=== PATIENT | female | born 1980 ===

== ENCOUNTER 2016-06-19 07:27 | Emergency (ER) | payer MEDICAID, OTHER ==
[~2016-06-19] VITALS: Ht 154.9 cm; Wt 59.1 kg
[2016-06-19 07:29] VITALS: BP 134/93; PULSE 117; RESP 16; O2SAT 100
--- NOTE | 2016-06-19 07:41 | ED.REPORT ---
HPI-Rash / Abscess Date of Service Jun 19, 2016 ED Provider: Steven Sood MD The patient is a 35 year old female who presents to the emergency department complaining of an abscess to her left upper extremity. She first noticed the abscess 4 days ago. The swelling has worsened since onset. 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 Her last use was last night around 2200. She was previously on Suboxone but only used it for 3 days. She is interested in getting help with quitting. She denies fever, chills. nausea or vomiting. Nursing Notes Stated Complaint: ABSCESS ON ARM Chief Complaint: Skin Rash/Abscess Nursing Notes Reviewed: Yes Allergies: Coded Allergies: codeine (Verified Allergy, Mild, rash, 01/19/16) No Active Prescriptions or Reported Meds General Time Seen by MD: 07:36 Chief Complaint Abscess Hx Obtained From: Patient Arrived By: Walk-in Onset Occurred: 4 days ago Context of Onset: Other (IV drug use) Symptom Duration: Since onset Location: : Arm Quality: Painful Severity: Current: Moderate Severity: Maximum: Moderate Associated with: Denies Fever, Denies Nausea, Denies Vomiting Additional Notes: -chills Pertinent Negative: Pt denies other symptoms Recent Healthcare: No recent doctor visit, No recent hospitalization Past Medical History Past Medical History Heart murmur since childhood Previous abscess Past Surgical History Hernia repair Reports: Appendectomy Family History Noncontributory Smoking History Never Smoker Social History Drinks alcohol 3-4 times a week Drug Use: IV drugs, Meth Other Social History: Good social support, Local resident Ambulatory Status Independent Review of Systems Constitutional: Denies: Chills, Fever GI: Denies: Nausea, Vomiting Musculoskeletal: Reports: Extremity pain, Extremity swelling Skin: Reports Rash, Reports Swelling Complete sys rev & neg: except as marked. Physical Exam Initial Vital Signs Vital Signs (First) Date Time Temp Pulse Resp B/P Pulse Ox O2 Delivery O2 Flow Rate FiO2 06/19/16 07:29 36.2 117 16 134/93 100 Room Air Initial VS: Reviewed Head / Eyes: Atraumatic, Normocephalic, PERRL ENT: Mucous membranes moist, Conjunctiva normal, No scleral icterus Neck: Supple, Non-tender, Full range of motion Respiratory: Breath sounds normal, Clear to auscultation, No respiratory distress Abdomen / GI: Soft, Non-tender, No guarding, No rebound, No distention Lymphatic: No lymphadenopathy Extremities: Vascular intact, Neuro intact, No swelling, No tenderness Neurologic: Alert, Oriented, Nonfocal Psychiatric: Mood/affect normal, Behavior normal, Normal thought content General/Constitutional: Awake, Alert, Cooperative Skin: Color NL, Warm, Dry Abscess Notes: Left forearm is indurated red swollen and weeping. The entire area of redness is about 20 x 20 cm in the mid dorsal forearm. There is a pointing abscess in the middle draining some clear fluid. There is no fluctuance to palpation. There is no epitrochlear or axillary adenopathy. Distally neurovascular status is intact. Cardiovascular: Heart rate NL, Regular rhythm, No gallop, No rubs, Peripheral circulation NL, Pulses = bilaterally Heart Sounds / Murmur: Positive: Systolic murmur present.. (III/) Re-Eval/Medical Decision Med Decision/Clinical Course I went and talked to the patient initially upon arrival and talk to her about the need for ultrasound and by willingness to do anything necessary to treat her obvious infection in the left forearm. I did also discuss with her the possibility of starting Suboxone which she seemed to express some interest in but then subsequently declined by telling one of the nurses. Another 30 minutes elapsed and she was gone from the room without having told anyone that she was leaving. Source of Hx: Old records Re-Evaluation/Progress #1: Time of Eval: 08:05 Re-Evaluation/Progress Note: Per ED nurse, the patient would no longer like assistance with her IV drug use. She would like the abscess taken care of and then to be discharged home. Re-Evaluation/Progress #2: Time of Eval: 08:30 Re-Evaluation/Progress Note: The patient left without completing her examination or giving her discharge papers or a prescription. Counseled Regarding: Diagnosis Discharge & Departure Impression: Primary Impression: Abscess Disposition: AGAINST MEDICAL ADVICE (Patient left before exam was completed or discharge packet and prescription were given.) Discharge Condition All VS Reviewed: Yes Condition: Stable Referrals: Rosalba Peter MD (PCP) Scribe Attestation Portions of this note were transcribed by Erika Harris. I, Dr. Sood personally performed the history, physical exam and medical decision-making; I reviewed and confirmed the accuracy of the information in the transcribed note. Signed by: Genna Nichols, 06/19/2016 at 0910. copies to: Rosalba Peter MD, Kirk H MD Jun 19, 2016 07:41 Steven,Erika Anne Jun 19, 2016 07:46
== END 2016-06-19 08:37 | disposition left against medical advice (07) ==
LOC: SED 07:27
DX: L02.414 Cutaneous abscess of left upper limb (principal); Z88.5 Allergy status to narcotic agent

== ENCOUNTER 2016-06-19 14:26 | Emergency (ER) | payer MEDICAID, OTHER ==
[~2016-06-19] VITALS: Ht 154.9 cm; Wt 59.1 kg
[2016-06-19 14:58] VITALS: BP 118/82; PULSE 96; RESP 17; O2SAT 100
--- NOTE | 2016-06-19 15:45 | ED.REPORT ---
HPI-Rash / Abscess Date of Service Jun 19, 2016 ED Provider: Agnieszka Leigh History of Present Illness: abscess for 3 days on left forearm hot packed it and tried to open it herself. primary care is [place]. tadp 05/2012, stopped suboxone. injected into site, is interested in treatment. Nursing Notes Stated Complaint: ABSCESS ON ARM Chief Complaint: Skin Rash/Abscess Nursing Notes Reviewed: Yes Allergies: Coded Allergies: codeine (Verified Allergy, Mild, rash, 01/19/16) No Active Prescriptions or Reported Meds General Time Seen by MD: 15:32 Chief Complaint Abscess Hx Obtained From: Patient Onset Occurred: 3 days ago Symptom Duration: Since onset Past Medical History Past Medical History Heart murmur since childhood Previous abscess herion use 06/19/2016 Past Surgical History Hernia repair Reports: Appendectomy Family History Noncontributory Smoking History Never Smoker Social History Drinks alcohol 3-4 times a week Drug Use: IV drugs, Meth, Other (herion) Other Social History: Good social support, Local resident Occupation lives by self, no work or school Ambulatory Status Independent Review of Systems Basic Review of Systems : No dysuria, No frequency Neurologic: NL mental status, No weakness, No numbness Psychiatric: Normal thought content Physical Exam Initial Vital Signs Vital Signs (First) Date Time Temp Pulse Resp B/P Pulse Ox O2 Delivery O2 Flow Rate FiO2 06/19/16 14:58 36.2 96 17 118/82 100 Room Air Initial VS: Reviewed, Vital signs normal Head / Eyes: Atraumatic, Normocephalic, PERRL ENT: Mucous membranes moist, Conjunctiva normal, No scleral icterus Neck: Supple, Non-tender, Full range of motion Respiratory: Breath sounds normal, Clear to auscultation, No respiratory distress Cardiovascular: Regular rate & rhythm, Heart sounds normal, Intact distal pulses Abdomen / GI: Soft, Non-tender, No guarding, No rebound, No distention Back: No CVA tenderness Lymphatic: No lymphadenopathy Extremities: Vascular intact, Neuro intact, No swelling, No tenderness Neurologic: Alert, Oriented, Nonfocal Psychiatric: Mood/affect normal, Behavior normal, Normal thought content General/Constitutional: Awake, Alert, No acute distress, Well appearing Rash / Lesion Notes: abscess present with surrounding erthyma on mid aspect of left forearm. palpable floutance Rash / Lesion Location: Positive: Localized Abscess #1 Location/Condition: Positive: Erythema surrounding, Fluctuant, Medium bilateral arms show multiple scars from injection use, few fresh bruises noted. Head / Eyes: Atraumatic, Normocephalic, PERRL, EOMI ENT: Atraumatic, Airway patent, Mucous membranes moist Respiratory / Chest: Atraumatic, Breath sounds NL, Breath sounds = bilat Cardiovascular: Heart rate NL, Regular rhythm, Heart sounds NL, No gallop abscess on left mid forearm. Patient has ring on left 4th finger, requested patient remove it and she choose not to. Procedures Incision & Drainage Abscess Time: 16:15 Procedure Performed by: Allied health pract Consent / Setup / Site Prep: Informed consent provided, Consent from patient , Hand hygiene observed Location of Abscess: mid forearm on the left Skin Preparation Agent: Betadine Incised Abscess with Scalpel: #11 Pus Drained: Medium, Purulent discharge Irrigation: Copious Post-Procedure / Complications: Packing placed, Culture obtained, Gram stain ordered, Dressing applied, No complications, Condition improved, Tolerated procedure well, Patient stable Re-Eval/Medical Decision Med Decision/Clinical Course 35 year old female present for evualtion of abscess on left mid forearm. Abscess has mild erthyma surrounding it. Tdap current. Patient tolerates opening of abscess. Culture pending. No sign of impetigo or erthyma multiforma. Patient does desire treatment, provided [facility] contact number. Discharge & Departure Impression: Primary Impression: Abscess Additional Impression: Cellulitis Site of cellulitis of extremity: upper extremity Laterality: left Disposition: Home Patient Instructions: Abscess Incision and Drainage (ED), Cellulitis (ED) Additional Instructions: The site has been opened and packed. A moderate amount of discharge was expressed out. You are current on your tdap with the last dose given 05/2012. Consider [facility]. Start bactrim in the am and pm daily for 7 days. Use ibuprofen 600 mg up to 3 times a day. REturn on Friday for a recheck, sooner if the redness goes outside the line by more than 1 inch. Referrals: [facility] Provider for APC: Sam Duarte MD copies to: [facility] Agnieszka Leigh Jun 19, 2016 15:44
[2016-06-19] MEDS ORDERED: Lidocaine 1% 50 mL Inj NERVEBLOCK ONE (15:50)
[2016-06-19] MEDS ORDERED: TdaP Vaccine 0.5 mL Inj IM ONE (15:50)
== END 2016-06-19 16:20 | disposition home or self-care (01) ==
LOC: SED 14:26
DX: L02.414 Cutaneous abscess of left upper limb (principal); L03.114 Cellulitis of left upper limb; F15.10 Other stimulant abuse, uncomplicated; F11.10 Opioid abuse, uncomplicated; R01.1 Cardiac murmur, unspecified; Z88.5 Allergy status to narcotic agent